=== PATIENT | female | born 1965 | race Caucasian/White ===

== ENCOUNTER 2018-01-01 23:10 | Emergency (ER) | payer SELFPAY ==
[~2018-01-01] VITALS: Ht 152.4 cm; Wt 90.5 kg
[~2018-01-01 23:10] MED LIST: CELEBREX 200MG200 MG PO; PROVENTIL0.09 MG/A1 IH; SINGULAIR 110 MG/TAB PO; VITAMIN D 400400 IU PO
[2018-01-01 23:15] VITALS: TEMP 98
[2018-01-01 23:54] LABS: BASO % 0.3 % (0.0-2.0); EOS # 0.1 (0.0-0.7); EOS % 1.3 % (0-4.0); GRAN % 53.7 % (42.2-75.2); HEMATOCRIT 36.8 % (37.0-47.0); HEMOGLOBIN 12.1 g/dl (12.5-16.0); LYMPH # 3.5 (1.2-3.4); LYMPH % 38.3 % (20.0-51.0); MEAN CELL VOLUME 89 fl (80.0-100.0); MEAN CORPUSCULAR HEMOGLOBIN 29 pg (27.0-31.0); MEAN CORPUSCULAR HGB CONC 33 g/dl (33.0-37.0); MONO # 0.6 (0.1-0.6); MONO % 6.2 % (1.7-9.3); PLATELET COUNT 246 K/mm3 (130-400); RED BLOOD COUNT 4.13 M/mm3 (4.10-5.30); REDCELL DISTRIBUTION WIDTH-CV 15.2 % (11.5-14.5)
[2018-01-01] MEDS ORDERED: FLAXSEED OIL1000 MG PO (23:56)
[2018-01-01] MEDS ORDERED: TYLENOL 8 HR PO (23:56)
[2018-01-01] MEDS ORDERED: VITAMIN C500 MG PO (23:56)
[2018-01-02 00:04] LABS: ALBUMIN 3.9 gm/dL (3.5-5.0); BILIRUBIN,TOTAL 0.3 mg/dL (0.0-1.0); CALCIUM 8.8 mg/dL (8.4-10.2); CREATININE, serum 0.46 mg/dL (0.52-1.25); POTASSIUM 3.6 mmol/L (3.4-5.0); TOTAL PROTEIN 7.9 gm/dL (6.4-8.2)
[2018-01-02] MEDS ORDERED: VALIUM 5MG T5 MG/TAB PO (00:57)
[2018-01-02 01:32] VITALS: BP 146/78; PULSE 59
== END 2018-01-02 01:44 | disposition home or self-care (01) ==
LOC: COL.ER 23:10
PROVIDERS: Emergency Medicine
DX: R42 Dizziness and giddiness (principal); Z79.899 Other long term (current) drug therapy
CPT/HCPCS: J2405; J7030

== ENCOUNTER → 2018-03-25 | Outpatient (CLI) | payer MEDICAID ==
[~2018-03-25] VITALS: Ht 152.4 cm; Wt 87.5 kg
[~2018-03-25] MED LIST changes: +CLARITIN 1010 MG/TAB PO; +FLAXSEED OIL1000 MG PO; +TYLENOL 8 HR PO; +VALIUM 5MG T5 MG/TAB PO; +VITAMIN C500 MG PO
[2018-03-25 12:48] VITALS: BP 108/80; PULSE 80
== END ==
LOC: LIGHT 10-29 11:56
DX: J45.909 Unspecified asthma, uncomplicated (principal); F32.9 Major depressive disorder, single episode, unspecified; K21.9 Gastro-esophageal reflux disease without esophagitis; Z68.37 Body mass index [BMI] 37.0-37.9, adult; Z71.3 Dietary counseling and surveillance
CPT/HCPCS: G0463

== ENCOUNTER → 2018-04-01 | Outpatient (CLI) | payer MEDICAID | LOC: LIGHT 10:48 | DX: J45.909 Unspecified asthma, uncomplicated (principal); F32.9 Major depressive disorder, single episode, unspecified; K21.9 Gastro-esophageal reflux disease without esophagitis; Z68.37 Body mass index [BMI] 37.0-37.9, adult; Z71.3 Dietary counseling and surveillance ==

== ENCOUNTER → 2018-04-29 | Outpatient (CLI) | payer MEDICAID ==
[~2018-04-29] VITALS: Ht 152.4 cm; Wt 87.3 kg
[2018-04-29 12:46] VITALS: BP 134/80; PULSE 72
== END ==
LOC: LIGHT 11:30
DX: J45.909 Unspecified asthma, uncomplicated (principal); F32.9 Major depressive disorder, single episode, unspecified; K21.9 Gastro-esophageal reflux disease without esophagitis; Z68.37 Body mass index [BMI] 37.0-37.9, adult; Z71.3 Dietary counseling and surveillance
CPT/HCPCS: G0463

== ENCOUNTER → 2018-05-06 | Outpatient (CLI) | payer MEDICAID | LOC: MC.RAD 09:36 | DX: Z12.31 Encounter for screening mammogram for malignant neoplasm of breast (principal) ==

== ENCOUNTER 2019-01-11 14:06 | Emergency (ER) | payer MEDICAID ==
[~2019-01-11] VITALS: Ht 152.4 cm; Wt 77.3 kg
[2019-01-11 15:44] LABS: COLLECTION METHOD CLEAN CATCH
[2019-01-11 15:49] LABS: BASO % 0.4 % (0.0-2.0); EOS # 0.4 (0.0-0.7); EOS % 3.5 % (0-4.0); GRAN # 5.9 (1.4-6.5); GRAN % 55.9 % (42.2-75.2); HEMATOCRIT 39.4 % (37.0-47.0); HEMOGLOBIN 12.6 g/dl (12.5-16.0); LYMPH # 3.5 (1.2-3.4); LYMPH % 33.7 % (20.0-51.0); MEAN CELL VOLUME 93 fl (80.0-100.0); MEAN CORPUSCULAR HEMOGLOBIN 30 pg (27.0-31.0); MEAN CORPUSCULAR HGB CONC 32 g/dl (33.0-37.0); MEAN PLATELET VOLUME 12.1 fl (7.4-10.4); MONO # 0.7 (0.1-0.6); MONO % 6.2 % (1.7-9.3); PLATELET COUNT 149 K/mm3 (130-400); RED BLOOD COUNT 4.26 M/mm3 (4.10-5.30)
[2019-01-11 15:52] LABS: MUCOUS Present /lpf; PH 7 (5-8); URINE APPEARANCE Clear; URINE BACTERIA Rare /hpf; URINE BILIRUBIN Negative (NEGATIVE); URINE BLOOD Negative (NEGATIVE); URINE COLOR Straw; URINE GLUCOSE Negative (NEGATIVE); URINE KETONE Negative (NEGATIVE); URINE LEUKOCYTE ESTERASE Negative (NEGATIVE); URINE NITRATE Negative (NEGATIVE); URINE PROTEIN(semi-quant) Negative (NEGATIVE); URINE RBC 0-2 /hpf; URINE UROBILINOGEN Negative (NEGATIVE)
[2019-01-11 16:11] LABS: ALANINE AMINOTRANSFERASE < 6 U/L (9-52); ALBUMIN 3.7 gm/dL (3.5-5.0); ALKALINE PHOSPHATASE 62 U/L (50-136); ANION GAP 7 mmol/L (7-16); AST,SGOT 34 U/L (15-37); BILIRUBIN,TOTAL 0.2 mg/dL (0.0-1.0); BLOOD UREA NITROGEN 10 mg/dL (7-17); C-REACTIVE PROTEIN 1.9 mg/dL (0.0-0.9); CALCIUM 8.7 mg/dL (8.4-10.2); CARBON DIOXIDE 28 mmol/L (22-30); CHLORIDE 107 mmol/L (98-107); CREATININE, serum 0.48 (0.52-1.25); GLUCOSE 75 mg/dL (74-106); LIPASE 59 U/L (23-300); POTASSIUM 3.8 mmol/L (3.4-5.0); SODIUM 141 mmol/L (137-145); TOTAL PROTEIN 7.3 gm/dL (6.4-8.2)
[2019-01-11 16:20] LABS: TROPONIN-I < 0.012 ng/mL (0.000-0.035)
[2019-01-11] MEDS ORDERED: NORCO 325 MG-7.1 TAB PO (16:35)
[2019-01-11] MEDS ORDERED: FLEXERIL 1010 MG/TAB PO (16:35)
[2019-01-11] MEDS ORDERED: MEDROL 4MG DOSPA4 MG PO (16:35)
[2019-01-11 17:15] VITALS: BP 140/79; PULSE 68; TEMP 98.2
== END 2019-01-11 17:20 | disposition home or self-care (01) ==
LOC: COL.ER 14:06
PROVIDERS: Physician Assistant
DX: S29.012A Strain of muscle and tendon of back wall of thorax, initial encounter (principal); J45.909 Unspecified asthma, uncomplicated; E11.9 Type 2 diabetes mellitus without complications; F17.210 Nicotine dependence, cigarettes, uncomplicated; Z98.890 Other specified postprocedural states; Z90.89 Acquired absence of other organs; X50.0XXA Overexertion from strenuous movement or load, initial encounter
CPT/HCPCS: J1885; J3360; J7030

== ENCOUNTER 2019-10-29 07:09 | Day surgery (SDC) | payer MEDICAID ==
[~2019-10-29] VITALS: Ht 152.4 cm; Wt 87.5 kg
[~2019-10-29 07:09] MED LIST changes: +FLEXERIL 1010 MG/TAB PO; +MEDROL 4MG DOSPA4 MG PO; +NORCO 325 MG-7.1 TAB PO
[2019-10-29 07:37] VITALS: BP 144/87; PULSE 64; TEMP 97.7
[2019-10-29] MEDS ORDERED: VALIUM 5MG T5 MG/TAB PO (07:49)
[2019-10-29] MEDS ORDERED: IPRATROPIUM BROM3 M1 IH (07:50)
[2019-10-29] MEDS ORDERED: MOTRIN 200200 MG/TAB PO (07:50)
[2019-10-29] MEDS ORDERED: FLEXERIL 1010 MG/TAB PO (07:51)
[2019-10-29] MEDS ORDERED: PROTONIX 40MG T40 MG PO (07:53)
[2019-10-29] MEDS ORDERED: MITIGARE0.6 MG PO (07:55)
[2019-10-29] MEDS ORDERED: METHOTREXA2.5 MG/TAB PO (07:56)
[2019-10-29 09:50] VITALS: BP 144/82; PULSE 63; TEMP 97.2
[2019-10-29 10:05] VITALS: BP 136/86; PULSE 62
[2019-10-29 10:20] VITALS: BP 142/81; PULSE 72
--- NOTE | 2019-10-29 11:16 | NUR ---
0950 ARRIVED TO [facility] [place]IA CART. PATIENT AMBULATED TO CHAIR WITH SBA. REPORT AND CARE OF PATIENT RECIEVED FROM [facility] [place]. VSS. WARM BLANKET GIVEN FOR COMFORT. PATIENT REQUESTED WATER, COFFEE WITH CREAM AND A BLUEBERRY MUFFIN. 1005 PATIENT TOLERATING PO WELL. DENIES COMPLAINT. 1020 PATIENT AWAKE, ALERT AND ORIENTED. VSS. DENIES COMPLAINT. PATIENT EDUCATION AND DISCHARGE INSTRUCTIONS WRITTEN AND VERBAL GIVEN TO PATIENT. PATIENT VERBALIZED UNDERSTANDING. 1025 IV D/C'D. CATHETER TIP INTACT. TOLERATED WELL. WASTED 700 ML OF LR. 1035 DISCHARGED TO POV PER W/C.
== END 2019-10-29 10:35 | disposition home or self-care (01) ==
LOC: SDCO 07:09
DX: Z12.11 Encounter for screening for malignant neoplasm of colon (principal); M05.731 Rheumatoid arthritis with rheumatoid factor of right wrist without organ or systems involvement; J45.40 Moderate persistent asthma, uncomplicated; M10.9 Gout, unspecified; K21.9 Gastro-esophageal reflux disease without esophagitis; F17.210 Nicotine dependence, cigarettes, uncomplicated; G89.29 Other chronic pain; M54.9 Dorsalgia, unspecified; F41.9 Anxiety disorder, unspecified; Z80.0 Family history of malignant neoplasm of digestive organs; Z79.899 Other long term (current) drug therapy
CPT/HCPCS: J2704

== ENCOUNTER 2020-10-26 10:10 | Emergency (ER) | payer MEDICAID ==
[~2020-10-26] VITALS: Ht 152.4 cm; Wt 90.0 kg
[~2020-10-26 10:10] MED LIST changes: +IPRATROPIUM BROM3 M1 IH; +METHOTREXA2.5 MG/TAB PO; +MITIGARE0.6 MG PO; +MOTRIN 200200 MG/TAB PO; +PROTONIX 40MG T40 MG PO
[2020-10-26 10:18] VITALS: BP 152/87; TEMP 98.3
[2020-10-26] MEDS ORDERED: NORCO 325 MG-7.1 TAB PO (11:16)
[2020-10-26] MEDS ORDERED: MEDROL 4MG DOSPA4 MG PO (11:18)
[2020-10-26 11:35] VITALS: PULSE 61
== END 2020-10-26 11:35 | disposition home or self-care (01) ==
LOC: COL.ER 10:10
DX: M75.32 Calcific tendinitis of left shoulder (principal); J45.909 Unspecified asthma, uncomplicated; K21.9 Gastro-esophageal reflux disease without esophagitis; F17.200 Nicotine dependence, unspecified, uncomplicated; Z79.899 Other long term (current) drug therapy
CPT/HCPCS: 1647; A4565

== ENCOUNTER → 2022-02-06 | Outpatient (CLI) | payer MEDICAID | LOC: MC.RAD 09:14 | DX: Z12.31 Encounter for screening mammogram for malignant neoplasm of breast (principal) ==

== ENCOUNTER → 2023-08-23 | Outpatient (CLI) | payer MEDICAID ==
[~2023-08-23] MED LIST changes: +AMOXICILLIN 8751 TAB PO
== END ==
LOC: MC.RAD 13:04
DX: Z12.31 Encounter for screening mammogram for malignant neoplasm of breast (principal)